=== PATIENT | male | born 1995 | race Caucasian/White ===

== ENCOUNTER 2020-04-25 08:10 | Emergency (ER) | payer OTHER ==
[2020-04-25 08:24] VITALS: BP 131/89; PULSE 96; TEMP 98.2; BMI 20.9
[2020-04-25] MEDS ORDERED: DIPHTH,PERTUSS(ACELL),TET 0.5 ML DISP.SYRIN IM ONE ×2 (08:35→08:42)
[2020-04-25] MEDS ORDERED: IBUPROFEN 600 MG TABLET (FP) PO ONE ×2 (08:42→08:53)
[2020-04-25] MEDS ORDERED: SILVER SULFADIAZINE 1% TOP CREAM 50 GM JAR TP ONE (08:42)
== END 2020-04-25 09:48 | disposition home or self-care (01) ==
LOC: JER 08:10
PROC: 3E0234Z Introduction of Serum, Toxoid and Vaccine into Muscle, Percutaneous Approach (ICD-10-PCS; principal; 2020-04-25)
DX: M25.562 Pain in left knee (principal)
CPT/HCPCS: 73562-TC-LT-FY; 90715; 99284-25

== ENCOUNTER 2020-12-06 15:18 | Emergency (ER) | payer OTHER ==
[2020-12-06 15:32] VITALS: BP 124/84; TEMP 98.4; BMI 22.6
[2020-12-06] MEDS ORDERED: SODIUM CHLORIDE 0.9% 500 ML INFUS.BAG IV ONE (16:44)
[2020-12-06] MEDS ORDERED: DICYCLOMINE HCL 10 MG/5 ML PO ONE (16:45)
[2020-12-06] MEDS ORDERED: LOPERAMIDE HCL 2 MG CAPSULE PO ONE (16:45)
[2020-12-06] MEDS ORDERED: LOPERAMIDE HCL 2 MG CAPSULE ONE (16:57)
[2020-12-06] MEDS ORDERED: DICYCLOMINE HCL 10 MG CAPSULE ONE (17:10)
[2020-12-06] MEDS ORDERED: DICYCLOMINE HCL 10 MG CAPSULE PO ONE (17:14)
[2020-12-06 17:19] LABS: BASO % 0.7 % (0-2.0); HEMATOCRIT 46.7 % (35.4-49); HEMOGLOBIN 16.1 GM/dL (11.7-16.9); LYMPH % 18.7 % (8-40); MCH 30.1 pg (25.7-33.7); MCHC 34.4 g/dl (32.0-35.9); MEAN CELL VOLUME 87.6 fl (80-96); MEAN PLT VOLUME 7.6 fl (7.5-11.1); MONO % 10.5 % (3.8-10.2); NEUT % 67.1 % (42.8-82.8); PLATELET COUNT 254 10^3/uL (134-434); RBC 5.34 M/mm3 (4.00-5.60); RDW 13.5 % (11.9-15.9); WHITE BLOOD COUNT 8.5 K/mm3 (4.0-10.0)
[2020-12-06 17:42] LABS: ALBUMIN 4.3 g/dl (3.4-5.0); BLOOD UREA NITROGEN 9.8 mg/dL (7-18); CALCIUM 9.7 mg/dL (8.5-10.1)
[2020-12-06 17:45] LABS: CREATININE 0.9 mg/dL (0.55-1.3)
[2020-12-06 17:47] LABS: BILIRUBIN,TOTAL 0.6 mg/dL (0.2-1); TOT PROT 8.9 g/dl (6.4-8.2)
[2020-12-06 18:59] VITALS: PULSE 88
[2020-12-06 19:22] LABS: BLOOD UREA NITROGEN 9.9 mg/dL (7-18); CALCIUM 8.8 mg/dL (8.5-10.1)
[2020-12-06 19:25] LABS: CREATININE 0.9 mg/dL (0.55-1.3)
== END 2020-12-06 19:34 | disposition home or self-care (01) ==
LOC: JER 15:18
DX: R19.7 Diarrhea, unspecified (principal)
CPT/HCPCS: 36415; 80048; 80053; 83690; 85025; 99283-25

== ENCOUNTER 2021-06-29 01:14 | Emergency (ER) | payer OTHER ==
[2021-06-29] MEDS ORDERED: IBUPROFEN 600 MG TABLET (FP) PO ONE ×2 (01:55→01:56)
[2021-06-29] MEDS ORDERED: LACTATED RINGERS SOLUTION 1000 ML INFUS.BAG IV ONE (03:38)
[2021-06-29 04:08] LABS: BASO % 0.4 % (0-2.0); EOS % 0.4 % (0-4.5); HEMATOCRIT 44.6 % (35.4-49); HEMOGLOBIN 15.2 GM/dL (11.7-16.9); LYMPH % 6.6 % (8-40); MCH 29.6 pg (25.7-33.7); MEAN PLT VOLUME 7.9 fl (7.5-11.1); MONO % 11.2 % (3.8-10.2); NEUT % 81.4 % (42.8-82.8); PLATELET COUNT 229 10^3/uL (134-434); RBC 5.13 M/mm3 (4.00-5.60); RDW 13.3 % (11.9-15.9); WHITE BLOOD COUNT 7.8 K/mm3 (4.0-10.0)
[2021-06-29 04:29] VITALS: BP 120/67; TEMP 99.4; BMI 21.9
[2021-06-29 04:30] LABS: CALCIUM 9.3 mg/dL (8.5-10.1)
[2021-06-29 04:31] LABS: ALBUMIN 4.4 g/dl (3.4-5.0); BLOOD UREA NITROGEN 12.1 mg/dL (7-18)
[2021-06-29 04:34] LABS: CREATININE 0.9 mg/dL (0.55-1.3)
[2021-06-29 04:35] LABS: BILIRUBIN,TOTAL 0.4 mg/dL (0.2-1)
[2021-06-29 05:26] VITALS: PULSE 107
[2021-06-29] MEDS ORDERED: ACETAMINOPHEN 325 MG TABLET (FP) PO ONE (05:32)
[2021-06-29] MEDS ORDERED: ACETAMINOPHEN 325 MG TABLET (FP) ONE (05:33)
[2021-06-30 14:08] LABS: SARS-CoV-2 NAA Not Detected (Not Detected)
== END 2021-06-29 05:38 | disposition home or self-care (01) ==
LOC: JER 01:14
DX: R50.9 Fever, unspecified (principal)
CPT/HCPCS: 36415; 80053; 85025; 87804; 87807; 99283-25; C9803-CS; U0003; U0005

== ENCOUNTER 2022-03-19 09:34 | Emergency (ER) | payer OTHER ==
[2022-03-19 09:46] VITALS: BMI 21.9
[2022-03-19] MEDS ORDERED: KETOROLAC TROMETHAMINE 30 MG/1 ML VIAL IM ONE (10:10)
[2022-03-19] MEDS ORDERED: LIDOCAINE 5% TOPICAL PATCH TP ONE (11:02)
[2022-03-19] MEDS ORDERED: LIDOCAINE 5% TOPICAL PATCH ONE (11:04)
[2022-03-19 11:23] VITALS: BP 118/74; PULSE 86; RESP 18; TEMP 98
[2022-03-19] MEDS ORDERED: LIDOCAINE PATCH REMOVAL MC ONE (22:00)
== END 2022-03-19 12:08 | disposition home or self-care (01) ==
LOC: JERFT 09:34
PROC: 3E0233Z Introduction of Anti-inflammatory into Muscle, Percutaneous Approach (ICD-10-PCS; principal; 2022-03-19)
DX: R07.9 Chest pain, unspecified (principal); M54.50 Low back pain, unspecified
CPT/HCPCS: 71046-TC-FY; 93005; 93010; 99284-25

== ENCOUNTER 2022-04-16 05:48 | Emergency (ER) | payer OTHER ==
[2022-04-16 06:00] VITALS: BP 148/87; PULSE 112; RESP 20; TEMP 98.5; BMI 21.9
[2022-04-16] MEDS ORDERED: IBUPROFEN 400 MG TABLET (FP) PO ONE ×2 (07:05→08:24)
== END 2022-04-16 08:15 | disposition home or self-care (01) ==
LOC: JER 05:48
DX: S40.011A Contusion of right shoulder, initial encounter (principal); W06.XXXA Fall from bed, initial encounter
CPT/HCPCS: 73030-TC-RT-FY; 73060-TC-RT-FY; 99283-25

== ENCOUNTER 2022-05-16 20:15 | Emergency (ER) | payer OTHER ==
[2022-05-16 20:18] VITALS: BP 122/86; PULSE 98; RESP 18; TEMP 99.1; BMI 20.3
[2022-05-16] MEDS ORDERED: KETOROLAC TROMETHAMINE 30 MG/1 ML VIAL IM ONE (21:32)
[2022-05-16] MEDS ORDERED: KETOROLAC TROMETHAMINE 30 MG/1 ML VIAL ONE (21:35)
== END 2022-05-16 21:56 | disposition home or self-care (01) ==
LOC: JERFT 20:15
PROC: 3E0233Z Introduction of Anti-inflammatory into Muscle, Percutaneous Approach (ICD-10-PCS; principal; 2022-05-16)
DX: S93.601A Unspecified sprain of right foot, initial encounter (principal); X50.0XXA Overexertion from strenuous movement or load, initial encounter
CPT/HCPCS: 73630-TC-RT-FY; 99284-25

== ENCOUNTER 2022-10-23 16:24 | Emergency (ER) | payer OTHER ==
[2022-10-23 16:48] VITALS: BP 112/67; PULSE 85; RESP 18; TEMP 98.6; BMI 21.1
[2022-10-23] MEDS ORDERED: ACETAMINOPHEN 1000 MG/100 ML BAG IVPB ONE (17:10)
[2022-10-23] MEDS ORDERED: SODIUM CHLORIDE 1,000 ML IV STA (17:10)
[2022-10-23] MEDS ORDERED: FAMOTIDINE 20 MG/50 ML IVPB 20 MG/50 ML MG IVPB ONE ×2 (17:10→17:50)
[2022-10-23] MEDS ORDERED: MAG HYDROX/AL HYDROX/SIMETH 30 ML UNIT-DOSE CUP PO ONE (17:28)
[2022-10-23] MEDS ORDERED: MAG HYDROX/AL HYDROX/SIMETH 30 ML UNIT-DOSE CUP ONE (17:50)
[2022-10-23] MEDS ORDERED: ACETAMINOPHEN INJECTION 100 ML IVPB ONE (17:50)
[2022-10-23 18:02] LABS: BASO % 0.4 % (0-2.0); EOS % 3.6 % (0-4.5); HEMATOCRIT 42.8 % (35.4-49); HEMOGLOBIN 14.3 GM/dL (11.7-16.9); LYMPH % 19.7 % (8-40); MCH 28.6 pg (25.7-33.7); MCHC 33.5 g/dl (32.0-35.9); MEAN CELL VOLUME 85.3 fl (80-96); MEAN PLT VOLUME 7.5 fl (7.5-11.1); MONO % 9.7 % (3.8-10.2); NEUT % 66.6 % (42.8-82.8); PLATELET COUNT 341 10^3/uL (134-434); RBC 5.01 M/mm3 (4.00-5.60); WHITE BLOOD COUNT 8.7 K/mm3 (4.0-10.0)
[2022-10-23 18:19] LABS: POTASSIUM 5.1 mmol/L (3.5-5.1)
[2022-10-23 18:21] LABS: CALCIUM 8.7 mg/dL (8.5-10.1)
[2022-10-23 18:22] LABS: ALBUMIN 3.6 g/dl (3.4-5.0); BLOOD UREA NITROGEN 12.6 mg/dL (7-18)
[2022-10-23 18:25] LABS: CREATININE 0.8 mg/dL (0.55-1.3)
[2022-10-23 18:26] LABS: BILIRUBIN,TOTAL 0.3 mg/dL (0.2-1)
[2022-10-23 18:27] LABS: TOT PROT 7.5 g/dl (6.4-8.2)
== END 2022-10-23 19:08 | disposition home or self-care (01) ==
LOC: JER 16:24
PROC: 3E033GC Introduction of Other Therapeutic Substance into Peripheral Vein, Percutaneous Approach (ICD-10-PCS; principal; 2022-10-23)
PROC: 3E033GC Introduction of Other Therapeutic Substance into Peripheral Vein, Percutaneous Approach (ICD-10-PCS; 2022-10-23)
PROC: 3E0337Z Introduction of Electrolytic and Water Balance Substance into Peripheral Vein, Percutaneous Approach (ICD-10-PCS; 2022-10-23)
DX: R10.13 Epigastric pain (principal); R19.7 Diarrhea, unspecified
CPT/HCPCS: 36415; 80053; 82272; 83690; 85025; 99284-25

== ENCOUNTER 2023-05-14 18:13 | Emergency (ER) | payer OTHER ==
[2023-05-14 18:33] VITALS: BMI 21.9
[2023-05-14 21:11] VITALS: BP 116/75; PULSE 81; RESP 18; TEMP 97.4
[2023-05-14] MEDS ORDERED: CEPHALEXIN MONOHYDRATE 500 MG CAPSULE (UD) ONE (21:24)
[2023-05-14] MEDS ORDERED: IBUPROFEN 600 MG TABLET (FP) PO ONE (21:24)
[2023-05-14] MEDS: CEPHALEXIN MONOHYDRATE 500 MG CAPSULE (UD) PO ONE (21:33)
[2023-05-14] MEDS: IBUPROFEN 600 MG TABLET (FP) PO ONE (21:33)
== END 2023-05-14 22:31 | disposition home or self-care (01) ==
LOC: JER 18:13
DX: M79.641 Pain in right hand (principal); M79.89 Other specified soft tissue disorders; L53.9 Erythematous condition, unspecified
CPT/HCPCS: 73130-TC-RT-FY; 99283-25

== ENCOUNTER 2023-07-15 06:47 | Emergency (ER) | payer OTHER ==
[2023-07-15 06:54] VITALS: TEMP 99; BMI 27.4
[2023-07-15] MEDS: FAMOTIDINE 20 MG/50 ML IVPB 20 MG/50 ML MG IVPB ONE (08:25)
[2023-07-15] MEDS: SODIUM CHLORIDE 1,000 ML IV STA (08:25)
[2023-07-15] MEDS: ONDANSETRON 4 MG/2 ML VIAL IVPUSH ONE (08:25)
[2023-07-15] MEDS: ACETAMINOPHEN 1000 MG/100 ML BAG IVPB ONE (08:25)
[2023-07-15] MEDS ORDERED: ACETAMINOPHEN INJECTION 100 ML IVPB ONE (08:32)
[2023-07-15] MEDS ORDERED: FAMOTIDINE 20 MG/50 ML IVPB 20 MG/50 ML MG IVPB ONE (08:32)
[2023-07-15] MEDS ORDERED: ONDANSETRON 4 MG/2 ML VIAL ONE (08:32)
[2023-07-15 09:29] LABS: EOS % 10.4 % (0-4.5); HEMATOCRIT 41.5 % (35.4-49); HEMOGLOBIN 13.9 GM/dL (11.7-16.9); LYMPH % 25.4 % (8-40); MCH 28.9 pg (25.7-33.7); MCHC 33.4 g/dl (32.0-35.9); MEAN CELL VOLUME 86.6 fl (80-96); MEAN PLT VOLUME 7.6 fl (7.5-11.1); MONO % 12.6 % (3.8-10.2); NEUT % 50.6 % (42.8-82.8); PLATELET COUNT 451 10^3/uL (134-434); RDW 13.8 % (11.9-15.9); WHITE BLOOD COUNT 9.3 K/mm3 (4.0-10.0)
[2023-07-15 09:45] LABS: POTASSIUM 3.7 mmol/L (3.5-5.1)
[2023-07-15 09:47] LABS: ALBUMIN 3.9 g/dl (3.4-5.0); BLOOD UREA NITROGEN 10.9 mg/dL (7-18); CALCIUM 8.9 mg/dL (8.5-10.1); MAGNESIUM 2.2 mg/dL (1.8-2.4)
[2023-07-15 09:50] LABS: CREATININE 0.9 mg/dL (0.55-1.3)
[2023-07-15 09:52] LABS: BILIRUBIN,TOTAL 0.2 mg/dL (0.2-1); TOT PROT 8.3 g/dl (6.4-8.2)
[2023-07-15 14:07] VITALS: BP 101/40; PULSE 78; RESP 18
== END 2023-07-15 12:00 | disposition home or self-care (01) ==
LOC: JER 06:47
PROC: 3E033GC Introduction of Other Therapeutic Substance into Peripheral Vein, Percutaneous Approach (ICD-10-PCS; principal; 2023-07-15)
PROC: 3E033GC Introduction of Other Therapeutic Substance into Peripheral Vein, Percutaneous Approach (ICD-10-PCS; 2023-07-15)
PROC: 3E033GC Introduction of Other Therapeutic Substance into Peripheral Vein, Percutaneous Approach (ICD-10-PCS; 2023-07-15)
DX: R11.10 Vomiting, unspecified (principal); R19.7 Diarrhea, unspecified
CPT/HCPCS: 36415; 80053; 83690; 83735; 85025; 99284-25; J0131

== ENCOUNTER 2023-07-20 19:41 | Emergency (ER) | payer OTHER ==
[2023-07-20 19:48] VITALS: BP 131/92; PULSE 107; RESP 18; TEMP 98; BMI 28.7
[2023-07-20] MEDS ORDERED: ACETAMINOPHEN INJECTION 100 ML IVPB ONE (20:04)
[2023-07-20] MEDS: ACETAMINOPHEN 1000 MG/100 ML BAG IVPB ONE (20:25)
[2023-07-20] MEDS: SODIUM CHLORIDE 0.9% 500 ML INFUS.BAG IV ONE (20:25)
[2023-07-20 20:29] LABS: BASO % 0.8 % (0-2.0); EOS % 9.4 % (0-4.5); HEMATOCRIT 41.6 % (35.4-49); HEMOGLOBIN 13.8 GM/dL (11.7-16.9); LYMPH % 19.8 % (8-40); MCH 28.5 pg (25.7-33.7); MCHC 33.1 g/dl (32.0-35.9); MEAN CELL VOLUME 85.9 fl (80-96); MEAN PLT VOLUME 7.4 fl (7.5-11.1); MONO % 17.9 % (3.8-10.2); NEUT % 52.1 % (42.8-82.8); PLATELET COUNT 431 10^3/uL (134-434); RBC 4.84 M/mm3 (4.00-5.60); RDW 14.1 % (11.9-15.9); WHITE BLOOD COUNT 12.4 K/mm3 (4.0-10.0)
[2023-07-20] MEDS ORDERED: FAMOTIDINE 20 MG TABLET ONE (20:40)
[2023-07-20] MEDS ORDERED: MAG HYDROX/AL HYDROX/SIMETH 30 ML UNIT-DOSE CUP ONE (20:40)
[2023-07-20] MEDS: MAG HYDROX/AL HYDROX/SIMETH 30 ML UNIT-DOSE CUP PO ONE (20:42)
[2023-07-20] MEDS: FAMOTIDINE 20 MG TABLET PO ONE (20:42)
[2023-07-20 20:44] LABS: POTASSIUM 3.9 mmol/L (3.5-5.1)
[2023-07-20 20:47] LABS: ALBUMIN 3.4 g/dl (3.4-5.0); BLOOD UREA NITROGEN 9.2 mg/dL (7-18); CALCIUM 8.9 mg/dL (8.5-10.1)
[2023-07-20 20:51] LABS: BILIRUBIN,TOTAL 0.3 mg/dL (0.2-1); CREATININE 0.9 mg/dL (0.55-1.3); TOT PROT 7.4 g/dl (6.4-8.2)
[2023-07-20] MEDS ORDERED: metroNIDAZOLE 250 MG TABLET ONE (21:52)
[2023-07-20] MEDS: metroNIDAZOLE 250 MG TABLET PO ONE (21:57)
[2023-07-20] MEDS: CIPROFLOXACIN 500 MG TABLET (RESTRICTED TO ID) PO ONE (22:15)
== END 2023-07-20 22:28 | disposition home or self-care (01) ==
LOC: JER 19:41
PROC: 3E030NZ Introduction of Analgesics, Hypnotics, Sedatives into Peripheral Vein, Open Approach (ICD-10-PCS; principal; 2023-07-20)
DX: A09 Infectious gastroenteritis and colitis, unspecified (principal); R10.13 Epigastric pain; Z20.822 Contact with and (suspected) exposure to COVID-19
CPT/HCPCS: 0241U-QW; 36415; 74177-TC; 80053; 83690; 85025; 99285-25; J0131; Q9967

== ENCOUNTER 2023-08-03 18:48 | Emergency (ER) | payer OTHER ==
[2023-08-03 18:55] VITALS: RESP 18; BMI 22.4
[2023-08-03] MEDS ORDERED: KETOROLAC TROMETHAMINE 30 MG/1 ML VIAL IM ONE (19:11)
[2023-08-03] MEDS ORDERED: KETOROLAC TROMETHAMINE 30 MG/1 ML VIAL ONE (19:27)
[2023-08-03 19:29] LABS: BASO % 0.5 % (0-2.0); EOS % 5.4 % (0-4.5); HEMATOCRIT 39.4 % (35.4-49); HEMOGLOBIN 13.1 GM/dL (11.7-16.9); LYMPH % 17.8 % (8-40); MCH 28.2 pg (25.7-33.7); MCHC 33.2 g/dl (32.0-35.9); MEAN CELL VOLUME 84.9 fl (80-96); MEAN PLT VOLUME 6.6 fl (7.5-11.1); MONO % 13.4 % (3.8-10.2); NEUT % 62.9 % (42.8-82.8); PLATELET COUNT 638 10^3/uL (134-434); RBC 4.64 M/mm3 (4.00-5.60); RDW 13.4 % (11.9-15.9); WHITE BLOOD COUNT 13.1 K/mm3 (4.0-10.0)
[2023-08-03] MEDS: KETOROLAC TROMETHAMINE 15 MG/ML VIAL IVPUSH ONE (19:35)
[2023-08-03 19:41] VITALS: BP 116/79; PULSE 122; TEMP 98.2
[2023-08-03 19:47] LABS: POTASSIUM 4.3 mmol/L (3.5-5.1)
[2023-08-03 19:49] LABS: BLOOD UREA NITROGEN 9.2 mg/dL (7-18); CALCIUM 9.1 mg/dL (8.5-10.1)
[2023-08-03 19:53] LABS: CREATININE 0.9 mg/dL (0.55-1.3)
[2023-08-03 19:54] LABS: BILIRUBIN,TOTAL 0.3 mg/dL (0.2-1); TOT PROT 6.9 g/dl (6.4-8.2)
== END 2023-08-03 20:58 | disposition home or self-care (01) ==
LOC: JER 18:48
PROC: 3E0303Z Introduction of Anti-inflammatory into Peripheral Vein, Open Approach (ICD-10-PCS; principal; 2023-08-03)
DX: M25.571 Pain in right ankle and joints of right foot (principal)
CPT/HCPCS: 36415; 73610-TC-RT-FY; 73630-TC-RT-FY; 80053; 85025; 85651; 86140; 99284-25

== ENCOUNTER 2023-11-26 12:45 | Emergency (ER) | payer OTHER ==
[2023-11-26 12:50] VITALS: BP 138/89; PULSE 95; RESP 18; TEMP 98.9; BMI 26.3
[2023-11-26] MEDS ORDERED: IBUPROFEN 600 MG TABLET (FP) PO ONE (13:57)
[2023-11-26] MEDS: IBUPROFEN 600 MG TABLET (FP) PO ONE (14:00)
[2023-11-26 14:32] LABS: THROAT:GRP A STREP NOT DETECTED (NOTDETECTED)
[2023-11-26 14:50] LABS: HIV INTERPRETATION NEGATIVE (NEGATIVE)
== END 2023-11-26 14:37 | disposition home or self-care (01) ==
LOC: JERFT 12:45 → JER 12:45 → JERFT 14:37
DX: J02.9 Acute pharyngitis, unspecified (principal); R09.81 Nasal congestion; R05.9 Cough, unspecified; J06.9 Acute upper respiratory infection, unspecified; Z20.822 Contact with and (suspected) exposure to COVID-19
CPT/HCPCS: 0241U-QW; 36415; 86803; 87389; 87651; 99283-25

== ENCOUNTER 2024-05-24 06:21 | Emergency (ER) | payer OTHER ==
[2024-05-24 06:31] VITALS: TEMP 98.4; BMI 26.4
[2024-05-24 08:06] LABS: BASO % 0.8 % (0-2.0); EOS % 3.5 % (0-4.5); HEMATOCRIT 45.2 % (35.4-49); HEMOGLOBIN 15.2 GM/dL (11.7-16.9); LYMPH % 29.8 % (8-40); MCH 27.9 pg (25.7-33.7); MCHC 33.5 g/dl (32.0-35.9); MEAN CELL VOLUME 83.3 fl (80-96); MEAN PLT VOLUME 7.6 fl (7.5-11.1); MONO % 18.8 % (3.8-10.2); NEUT % 47.1 % (42.8-82.8); PLATELET COUNT 333 10^3/uL (134-434); RBC 5.43 M/mm3 (4.00-5.60); RDW 15.2 % (11.9-15.9); WHITE BLOOD COUNT 8.1 K/mm3 (4.0-10.0)
[2024-05-24] MEDS ORDERED: FAMOTIDINE 20 MG/50 ML IVPB 20 MG/50 ML MG IVPB ONE (08:11)
[2024-05-24] MEDS ORDERED: ACETAMINOPHEN INJECTION 100 ML ONE (08:11)
[2024-05-24] MEDS ORDERED: MAG HYDROX/AL HYDROX/SIMETH 30 ML UNIT-DOSE CUP ONE (08:11)
[2024-05-24] MEDS: MAG HYDROX/AL HYDROX/SIMETH -MYLANTA- ORAL SUSPENSION PO ONE (08:17)
[2024-05-24] MEDS: ACETAMINOPHEN 1000 MG/100 ML BAG IVPB ONE (08:18)
[2024-05-24] MEDS: FAMOTIDINE 20 MG/50 ML IVPB 20 MG/50 ML MG IVPB ONE (08:19)
[2024-05-24 08:23] LABS: POTASSIUM 3.7 mmol/L (3.5-5.1)
[2024-05-24 08:25] LABS: CALCIUM 9.1 mg/dL (8.5-10.1)
[2024-05-24 08:26] LABS: ALBUMIN 3.9 g/dl (3.4-5.0); BLOOD UREA NITROGEN 17.8 mg/dL (7-18)
[2024-05-24 08:29] LABS: CREATININE 0.9 mg/dL (0.55-1.3)
[2024-05-24 08:30] LABS: BILIRUBIN,TOTAL 0.3 mg/dL (0.2-1)
[2024-05-24 08:31] LABS: TOT PROT 7.9 g/dl (6.4-8.2)
[2024-05-24 09:31] VITALS: BP 122/79; PULSE 90; RESP 18
[2024-05-24 11:39] LABS: HIV INTERPRETATION NEGATIVE (NEGATIVE)
== END 2024-05-24 09:52 | disposition home or self-care (01) ==
LOC: JER 06:21
PROC: 3E033GC Introduction of Other Therapeutic Substance into Peripheral Vein, Percutaneous Approach (ICD-10-PCS; principal; 2024-05-24)
PROC: 3E033NZ Introduction of Analgesics, Hypnotics, Sedatives into Peripheral Vein, Percutaneous Approach (ICD-10-PCS; 2024-05-24)
DX: R10.11 Right upper quadrant pain (principal); R10.13 Epigastric pain; R19.7 Diarrhea, unspecified
CPT/HCPCS: 36415; 76705-TC; 80053; 83690; 83735; 85025; 86803; 87389; 96365; 96375; 99285-25; J0131

== ENCOUNTER 2024-06-11 16:33 | Inpatient (IN) | payer OTHER ==
[2024-06-11 17:51] LABS: BASO % 0.4 % (0-2.0); EOS % 8.6 % (0-4.5); HEMATOCRIT 43.7 % (35.4-49); HEMOGLOBIN 14.7 GM/dL (11.7-16.9); LYMPH % 20.7 % (8-40); MCH 28.3 pg (25.7-33.7); MCHC 33.7 g/dl (32.0-35.9); MEAN CELL VOLUME 83.9 fl (80-96); MEAN PLT VOLUME 7.2 fl (7.5-11.1); MONO % 13.7 % (3.8-10.2); NEUT % 56.6 % (42.8-82.8); PLATELET COUNT 471 10^3/uL (134-434); RBC 5.21 M/mm3 (4.00-5.60); RDW 15.2 % (11.9-15.9)
[2024-06-11] MEDS ORDERED: ACETAMINOPHEN INJECTION 100 ML ONE (17:52)
[2024-06-11] MEDS ORDERED: ONDANSETRON 4 MG/2 ML VIAL ONE (17:52)
[2024-06-11] MEDS ORDERED: FAMOTIDINE 20 MG/50 ML IVPB 20 MG/50 ML MG IVPB ONE (17:52)
[2024-06-11] MEDS: SODIUM CHLORIDE 0.9% 500 ML INFUS.BAG IV ONE (17:53)
[2024-06-11] MEDS: ACETAMINOPHEN 1000 MG/100 ML BAG IVPB ONE (17:54)
[2024-06-11] MEDS: FAMOTIDINE 20 MG/50 ML IVPB 20 MG/50 ML MG IVPB ONE (17:54)
[2024-06-11] MEDS: ONDANSETRON 4 MG/2 ML VIAL IVPUSH ONE (17:54)
[2024-06-11 18:16] LABS: CALCIUM 8.9 mg/dL (8.5-10.1)
[2024-06-11 18:17] LABS: ALBUMIN 3.8 g/dl (3.4-5.0); BLOOD UREA NITROGEN 9.5 mg/dL (7-18)
[2024-06-11 18:21] LABS: BILIRUBIN,TOTAL 0.2 mg/dL (0.2-1); CREATININE 0.9 mg/dL (0.55-1.3); TOT PROT 8.2 g/dl (6.4-8.2)
[2024-06-11 19:03] LABS: HCV DIAGNOSTIC IN-HOUSE W/RFLX NON-REACTIVE (NONREACTIVE)
[2024-06-11 19:05] LABS: HIV INTERPRETATION NEGATIVE (NEGATIVE)
[2024-06-11] MEDS: DEXTROSE 5%-NORMAL SALINE 1,000 ML IV SCH (21:09)
[2024-06-11] MEDS ORDERED: ACETAMINOPHEN 1000 MG/100 ML BAG IVPB PRN (22:40)
[2024-06-12 00:02] VITALS: BMI 26.4
[2024-06-12] MEDS: SODIUM CHLORIDE 1,000 ML IV SCH (02:59)
[2024-06-12 09:18] LABS: HEMOGLOBIN 12.7 GM/dL (11.7-16.9); MCH 28.7 pg (25.7-33.7); MCHC 34.3 g/dl (32.0-35.9); MEAN CELL VOLUME 83.7 fl (80-96); MEAN PLT VOLUME 7.4 fl (7.5-11.1); PLATELET COUNT 376 10^3/uL (134-434); RBC 4.43 M/mm3 (4.00-5.60); RDW 14.9 % (11.9-15.9); WHITE BLOOD COUNT 10.9 K/mm3 (4.0-10.0)
[2024-06-12 09:31] LABS: POTASSIUM 3.3 mmol/L (3.5-5.1)
[2024-06-12 09:43] LABS: BLOOD UREA NITROGEN 4.2 mg/dL (7-18); CALCIUM 8.3 mg/dL (8.5-10.1)
[2024-06-12 09:44] LABS: MAGNESIUM 1.9 mg/dL (1.8-2.4)
[2024-06-12 09:46] LABS: CREATININE 0.9 mg/dL (0.55-1.3); PHOSPHOROUS 2.9 mg/dL (2.5-4.9)
[2024-06-12 09:47] LABS: BILIRUBIN,TOTAL 0.4 mg/dL (0.2-1); TOT PROT 6.4 g/dl (6.4-8.2)
[2024-06-12] MEDS ORDERED: ONDANSETRON 4 MG/2 ML VIAL IVPB PRN (11:29)
[2024-06-12] MEDS: POTASSIUM CHLORIDE TABS 20 MEQ TABLET.ER (FP) PO ONE (11:55)
[2024-06-12] MEDS: VANCOMYCIN HCL 125 MG CAPSULE (RESTRICTED TO ID ONLY) PO SCH (14:10)
[2024-06-13 09:21] LABS: BASO % 0.4 % (0-2.0); EOS % 14.4 % (0-4.5); HEMOGLOBIN 13.2 GM/dL (11.7-16.9); LYMPH % 19.3 % (8-40); MCH 28.1 pg (25.7-33.7); MCHC 33.9 g/dl (32.0-35.9); MEAN PLT VOLUME 7.2 fl (7.5-11.1); MONO % 13.8 % (3.8-10.2); NEUT % 52.1 % (42.8-82.8); PLATELET COUNT 412 10^3/uL (134-434); RDW 14.5 % (11.9-15.9); WHITE BLOOD COUNT 10.5 K/mm3 (4.0-10.0)
[2024-06-13 09:44] LABS: CHLORIDE 104 mmol/L (98-107); POTASSIUM 3.2 mmol/L (3.5-5.1); SODIUM 139 mmol/L (136-145)
[2024-06-13 09:58] LABS: CALCIUM 8.7 mg/dL (8.5-10.1)
[2024-06-13 09:59] LABS: ANION GAP 7 mmol/L (4-13); CO2 27 mmol/L (21-32); GLUCOSE,RANDOM 128 mg/dL (74-106)
[2024-06-13 10:01] LABS: BLOOD UREA NITROGEN 2.5 mg/dL (7-18)
[2024-06-13 10:02] LABS: CREATININE 0.8 mg/dL (0.55-1.3); SGOT/AST 7 U/L (15-37); SGPT/ALT 12 U/L (13-61)
[2024-06-13 10:03] LABS: BILIRUBIN,TOTAL 0.4 mg/dL (0.2-1); TOT PROT 6.7 g/dl (6.4-8.2)
[2024-06-13 10:04] LABS: ALK PHOS 106 U/L (45-117)
[2024-06-14 10:13] LABS: HEMATOCRIT 43.4 % (35.4-49); HEMOGLOBIN 14.4 GM/dL (11.7-16.9); MCH 27.6 pg (25.7-33.7); MCHC 33.1 g/dl (32.0-35.9); MEAN CELL VOLUME 83.3 fl (80-96); MEAN PLT VOLUME 7.5 fl (7.5-11.1); PLATELET COUNT 453 10^3/uL (134-434); RBC 5.21 M/mm3 (4.00-5.60); RDW 14.5 % (11.9-15.9); WHITE BLOOD COUNT 11.7 K/mm3 (4.0-10.0)
[2024-06-14 10:17] LABS: POTASSIUM 3.3 mmol/L (3.5-5.1)
[2024-06-14 10:32] LABS: BLOOD UREA NITROGEN 4.9 mg/dL (7-18)
[2024-06-14 10:33] LABS: CALCIUM 9.2 mg/dL (8.5-10.1)
[2024-06-14 10:34] LABS: ALBUMIN 3.3 g/dl (3.4-5.0)
[2024-06-14 10:36] LABS: CREATININE 0.8 mg/dL (0.55-1.3); PHOSPHOROUS 3.9 mg/dL (2.5-4.9)
[2024-06-14 10:37] LABS: TOT PROT 7.3 g/dl (6.4-8.2)
[2024-06-14 10:40] LABS: BILIRUBIN,TOTAL 0.5 mg/dL (0.2-1)
[2024-06-14 10:57] LABS: ERYTHROCYTE SEDIMENTATION RATE 18 mm/hr (0-10)
[2024-06-14 12:25] LABS: HEPATITIS B SURF AG NON-MATERN NON-REACTIVE (NONREACTIVE)
[2024-06-15 09:08] LABS: HEMATOCRIT 50.6 % (35.4-49); HEMOGLOBIN 16.3 GM/dL (11.7-16.9); LYMPH % 23.9 % (8-40); MCH 27.7 pg (25.7-33.7); MCHC 32.2 g/dl (32.0-35.9); MEAN PLT VOLUME 7.6 fl (7.5-11.1); NEUT % 54.1 % (42.8-82.8); PLATELET COUNT 579 10^3/uL (134-434); RBC 5.88 M/mm3 (4.00-5.60); RDW 14.7 % (11.9-15.9); WHITE BLOOD COUNT 12.7 K/mm3 (4.0-10.0)
[2024-06-15 09:09] LABS: BASO % 0.7 % (0-2.0); EOS % 9.6 % (0-4.5); MONO % 11.7 % (3.8-10.2)
[2024-06-15 09:16] LABS: INR 1.27 (0.83-1.09)
[2024-06-15 09:51] LABS: CALCIUM 9.4 mg/dL (8.5-10.1)
[2024-06-15 09:52] LABS: BLOOD UREA NITROGEN 9.2 mg/dL (7-18)
[2024-06-15 09:55] LABS: CREATININE 1.2 mg/dL (0.55-1.3)
[2024-06-15 09:56] LABS: BILIRUBIN,TOTAL 0.4 mg/dL (0.2-1); TOT PROT 8.8 g/dl (6.4-8.2)
[2024-06-15] MEDS: KCL 10 MEQ IVPB 10 MEQ/100 ML INFUS.BAG IVPB SCH (11:26)
[2024-06-15] MEDS: POTASSIUM CHLORIDE ORAL LIQUID 20 MEQ/15 ML PO ONE (16:44)
[2024-06-16 09:29] LABS: ABSOLUTE IMMATURE GRANULOCYTES 0.09 x10^3/uL (0.0-0.031); BASOPHILS # 0.11 x10^3/uL (0.01-0.08); EOSINOPHILS # 1.41 x10^3/uL (0.04-0.54); HEMATOCRIT 45.8 % (40.1-51.0); MCHC 32.8 g/dl (32.3-36.5); MEAN CELL VOLUME 84.3 fl (79.0-92.2); MEAN PLT VOLUME 9.3 fl (9.4-12.4); MONOCYTE # 1.27 x10^3/uL (0.30-0.82); PLATELET COUNT 467 x10^3/uL (163-337); RDW 13.4 % (11.9-15.3)
[2024-06-16 09:46] LABS: POTASSIUM 3.7 mmol/L (3.5-5.1)
[2024-06-16 09:53] LABS: ALBUMIN 3.3 g/dl (3.4-5.0)
[2024-06-16 09:54] LABS: BLOOD UREA NITROGEN 10.3 mg/dL (7-18)
[2024-06-16 09:56] LABS: CALCIUM 8.9 mg/dL (8.5-10.1); PHOSPHOROUS 3.1 mg/dL (2.5-4.9)
[2024-06-16 09:58] LABS: BILIRUBIN,TOTAL 0.3 mg/dL (0.2-1); TOT PROT 7.6 g/dl (6.4-8.2)
[2024-06-16 10:00] LABS: CREATININE 0.9 mg/dL (0.55-1.3)
[2024-06-16] MEDS ORDERED: VANCOMYCIN ORAL SOLUTION 125 MG/2.5 ML PO SCH (12:00)
[2024-06-16] MEDS: VANCOMYCIN HCL 125 MG CAPSULE (RESTRICTED TO ID ONLY) PO SCH (12:45)
[2024-06-16 23:06] VITALS: RESP 18
[2024-06-17 06:06] LABS: STOOL OSMO 361 mOsmol/kg (Not Estab.)
[2024-06-17 09:52] LABS: HEMATOCRIT 40.6 % (40.1-51.0); HEMOGLOBIN 12.8 g/dL (13.7-17.5); MCHC 31.5 g/dl (32.3-36.5); MEAN PLT VOLUME 9.3 fl (9.4-12.4); PLATELET COUNT 410 x10^3/uL (163-337); RDW 13.6 % (11.9-15.3)
[2024-06-17 10:13] LABS: POTASSIUM 3.6 mmol/L (3.5-5.1)
[2024-06-17 10:16] LABS: CALCIUM 8.3 mg/dL (8.5-10.1)
[2024-06-17 10:17] LABS: ALBUMIN 2.8 g/dl (3.4-5.0); BLOOD UREA NITROGEN 6.8 mg/dL (7-18)
[2024-06-17 10:20] LABS: CREATININE 0.8 mg/dL (0.55-1.3); PHOSPHOROUS 3.4 mg/dL (2.5-4.9)
[2024-06-17 10:21] LABS: BILIRUBIN,TOTAL 0.3 mg/dL (0.2-1); TOT PROT 6.3 g/dl (6.4-8.2)
[2024-06-17 11:05] VITALS: TEMP 98.2
[2024-06-17 11:42] LABS: EOSINOPHILS # 1.72 x10^3/uL (0.04-0.54); MONOCYTE # 1.62 x10^3/uL (0.30-0.82)
[2024-06-17 14:21] VITALS: BP 110/75; PULSE 96
== END 2024-06-17 16:54 | disposition home or self-care (01) | DRG 245 ==
LOC: JER 16:33 → JERBED 22:48 → J6S 06-12 00:11
PROVIDERS: ADMIT Internal Medicine; ATTEND Student in an Organized Health Care Education/Training Program
PROC: 0DBN8ZX Excision of Sigmoid Colon, Via Natural or Artificial Opening Endoscopic, Diagnostic (ICD-10-PCS; principal; 2024-06-15 11:00)
DX: K51.918 Ulcerative colitis, unspecified with other complication (principal); A04.72 Enterocolitis due to Clostridium difficile, not specified as recurrent; K21.9 Gastro-esophageal reflux disease without esophagitis; D72.829 Elevated white blood cell count, unspecified
CPT/HCPCS: 36415; 74177-TC; 80053; 82272; 82438; 82977; 83690; 83735; 83993; 84100; 84302; 84999; 85025; 85027; 85610; 85651; 86140; 86480; 86704; 86705; 86707; 86803; 87045; 87046; 87209; 87324; 87340; 87350; 87389; 87425; 87449; 87493; 87517; 87798; 88305-TC; 99285-25; G0480; J0131

== ENCOUNTER 2024-11-30 12:33 | Emergency (ER) | payer OTHER ==
[2024-11-30 12:42] VITALS: BP 117/83; PULSE 91; RESP 18; TEMP 98.2; BMI 23.1
[2024-11-30] MEDS ORDERED: LIDOCAINE 5% TOPICAL PATCH ONE (13:50)
[2024-11-30] MEDS ORDERED: KETOROLAC TROMETHAMINE 30 MG/1 ML VIAL ONE (13:50)
[2024-11-30] MEDS: KETOROLAC TROMETHAMINE 30 MG/1 ML VIAL IM ONE (14:00)
[2024-11-30] MEDS: LIDOCAINE 5% TOPICAL PATCH TP ONE (14:00)
[2024-11-30] MEDS ORDERED: LIDOCAINE PATCH REMOVAL MC SCH (22:00)
== END 2024-11-30 14:38 | disposition home or self-care (01) ==
LOC: JERFT 12:33
PROC: 3E0233Z Introduction of Anti-inflammatory into Muscle, Percutaneous Approach (ICD-10-PCS; principal; 2024-11-30)
DX: M54.12 Radiculopathy, cervical region (principal); M25.511 Pain in right shoulder; R20.2 Paresthesia of skin
CPT/HCPCS: 73030-TC-RT-FY; 99284-25